=== PATIENT | male | born 1995 | race American Indian/Alaskan Native ===

== ENCOUNTER 2020-07-14 19:49 | Emergency (ER) | payer SELFPAY ==
[2020-07-14 20:35] VITALS: BP 118/69
[2020-07-14 21:06] LABS: Basophils # (Auto) 0.1 K/mm3 (0.0-0.1); Basophils % (Auto) 0.6 % (0.0-1.8); Eosinophils # (Auto) 0.1 K/mm3 (0.0-0.4); Eosinophils % (Auto) 1.3 % (0.0-4.3); Hematocrit 46.3 % (35.5-45.6); Hemoglobin 16.2 gm/dl (11.8-15.2); Lymphocytes # (Auto) 2.4 K/mm3 (1.2-5.4); Lymphocytes % (Auto) 27.2 % (13.4-35.0); Mean Corpuscular HGB Conc 35 % (32-34); Mean Corpuscular Volume 98 fl (84-94); Monocytes # (Auto) 0.5 K/mm3 (0.0-0.8); Monocytes % (Auto) 5.8 % (0.0-7.3); Platelet Count 205 K/mm3 (140-440); Red Blood Count 4.72 M/mm3 (3.65-5.03); Red Cell Distribution Width 13.7 % (13.2-15.2)
[2020-07-14 21:21] LABS: BUN/Creatinine Ratio 15; Blood Urea Nitrogen 12 mg/dL (9-20); Calcium 10.7 mg/dL (8.4-10.2); Hemolysis Index 27
--- NOTE | 2020-07-14 22:21 | Emergency Department Report ---
ED GI Bleed HPI - General Chief complaint: GI Bleed Stated complaint: BLOOD IN STOOL, HEMPRRHOIDS Source: patient Mode of arrival: Ambulatory Limitations: No Limitations - History of Present Illness Initial comments: Patient is a 24-year-old -[place] male with a history of chronic constipation and external hemorrhoids who presents to the ED with acute onset rectal pain with bright red blood per rectum for the last 2 days. Patient states that the pain is worse with any movement or bowel movement. Patient states that the bright red blood per rectum has been intermittent with each bowel movement leading to worsening pain. Patient states that he noticed that his external hemorrhoids have increased in size and now more prominent with severe pain. Patient admits to having frequent constipation. Patient denies abdominal pain, nausea, vomiting, traumatic injury, dizziness, fever, chills, syncope, chest pain or shortness of breath, dysuria, urinary frequency and urgency or testicular pain, urinary or bowel incontinence. MD complaint: blood on toilet paper, other (external hemorrhoid pain; Constipation) -: Sudden, days(s) (2) Radiation: none Severity scale (0 -10): 4 Quality: burning, sharp Consistency: constant Improves with: none Worsens with: bowel movement Context: hemorrhoids, other (chronic constipation) Associated Symptoms: denies other symptoms. denies: abdominal pain, nausea, vomiting, epistaxis, fever/chills, headaches, loss of appetite, malaise, easy bruising, rash, other bleeding, shortness of breath, syncope, weakness, other - Related Data Previous Rx's Medication Instructions Recorded Last Taken Type Dibucaine 1% [Nupercainal] 1 applicatio VA TID #1 tube 07/14/20 Unknown Rx Docusate Sodium [Colace CAP] 100 mg PO BID PRN #60 capsule 07/14/20 Unknown Rx Hydrocortisone [Anusol-Hc 2.5% TOP 1 applic RC Q8H #1 tube 07/14/20 Unknown Rx CREAM] Naproxen 500 mg PO Q12H PRN #24 tablet 07/14/20 Unknown Rx Allergies Allergy/AdvReac Type Severity Reaction Status Date / Time No Known Allergies Allergy Unverified 07/14/20 20:32 ED Review of Systems ROS: Stated complaint: BLOOD IN STOOL, HEMPRRHOIDS Other details as noted in HPI Constitutional: denies: chills, fever Eyes: denies: eye pain, eye discharge, vision change ENT: denies: ear pain, throat pain Respiratory: denies: cough, shortness of breath, wheezing Cardiovascular: denies: chest pain, palpitations Endocrine: no symptoms reported Gastrointestinal: constipation, other (Rectal bleeding; hemorrhoids). denies: abdominal pain, nausea, diarrhea Genitourinary: denies: urgency, dysuria Musculoskeletal: denies: back pain, joint swelling, arthralgia Skin: denies: rash, lesions Neurological: denies: headache, weakness, paresthesias Psychiatric: denies: anxiety, depression Hematological/Lymphatic: denies: easy bleeding, easy bruising ED Past Medical Hx - Past Medical History Previous Medical History?: No - Surgical History Past Surgical History?: No - Social History Smoking Status: Current Every Day Smoker Substance Use Type: Alcohol, Marijuana - Medications Home Medications: Home Medications Medication Instructions Recorded Confirmed Last Taken Type Dibucaine 1% [Nupercainal] 1 applicatio VA TID #1 tube 07/14/20 Unknown Rx Docusate Sodium [Colace CAP] 100 mg PO BID PRN #60 capsule 07/14/20 Unknown Rx Hydrocortisone [Anusol-Hc 2.5% TOP 1 applic RC Q8H #1 tube 07/14/20 Unknown Rx CREAM] Naproxen 500 mg PO Q12H PRN #24 tablet 07/14/20 Unknown Rx ED Physical Exam - General Limitations: No Limitations General appearance: alert, in no apparent distress - Head Head exam: Present: atraumatic, normocephalic, normal inspection - Eye Eye exam: Present: normal appearance, PERRL, EOMI Pupils: Present: normal accommodation - ENT ENT exam: Present: normal exam, normal orophraynx, mucous membranes moist, TM's normal bilaterally, normal external ear exam - Neck Neck exam: Present: normal inspection, full ROM - Respiratory Respiratory exam: Present: normal lung sounds bilaterally. Absent: respiratory distress, wheezes, rales, rhonchi, chest wall tenderness, accessory muscle use, decreased breath sounds - Cardiovascular Cardiovascular Exam: Present: regular rate, normal rhythm, normal heart sounds. Absent: systolic murmur, diastolic murmur, rubs, gallop - GI/Abdominal GI/Abdominal exam: Present: soft, normal bowel sounds. Absent: tenderness, hyperactive bowel sounds, organomegaly, mass, bruit - Rectal Rectal exam: Present: hemorrhoids (external mildly tender) - Extremities Exam Extremities exam: Present: normal inspection, full ROM, normal capillary refill - Back Exam Back exam: Present: normal inspection, full ROM. Absent: tenderness, CVA tenderness (R), CVA tenderness (L), muscle spasm, paraspinal tenderness, vertebral tenderness, rash noted - Neurological Exam Neurological exam: Present: alert, oriented X3, CN II-XII intact, normal gait, reflexes normal - Psychiatric Psychiatric exam: Present: normal affect, normal mood - Skin Skin exam: Present: warm, dry, intact, normal color. Absent: rash ED Course Vital Signs 07/14/20 20:32 Temperature 99.2 F Pulse Rate 70 Respiratory 18 Rate Blood Pressure 118/69 O2 Sat by Pulse 98 Oximetry ED Medical Decision Making - Lab Data Result diagrams: 07/14/20 20:53 07/14/20 20:53 - Medical Decision Making This is a 24-year-old -[place] male with a history of chronic constipation and external hemorrhoids who presents to the ED with acute onset re ctal pain with bright red blood per rectum for the last 2 days. Patient states that the pain is worse with any movement or bowel movement. Patient states that the bright red blood per rectum has been intermittent with each bowel movement leading to worsening pain. Patient states that he noticed that his external hemorrhoids have increased in size and now more prominent with severe pain. Patient admits to having frequent constipation. In the ED, patient is alert and oriented x3 and is not in distress. Patient was discharged home on medications and advised follow-up with his primary care physician in 5 to 7 days for reevaluation or return to the ED immediately if symptoms get worse. Patient was advised to use sitz bath's, drink plenty of water and increase high-fiber intake to controlled constipation. - Differential Diagnosis Hemorrhoids; Constipation; Anal fissures; Anal tears; GI Bleed Critical care attestation.: If time is entered above; I have spent that time in minutes in the direct care of this critically ill patient, excluding procedure time. ED Disposition Clinical Impression: External hemorrhoids, Rectal hemorrhage Constipation Qualifiers: Constipation type: other constipation type Qualified Code(s): K59.09 - Other constipation Disposition: - TO HOME OR SELFCARE Is pt being admited?: No Does the pt Need Aspirin: No Condition: Stable Instructions: Constipation, Adult, [id number], Hemorrhoids, [id number], Rectal Bleeding, [id number] Additional Instructions: The symptoms are likely due to external hemorrhoids that get bruised with each bowel movement causing the rectal bleeding. This are all caused by chronic constipation. Therefore take medication as advised, increase high-fiber content in your meals, drink plenty of fluids and follow-up with your primary care physician in 7 to 10 days for reevaluation. Return to the ED immediately if symptoms get worse. Prescriptions: Hydrocortisone [Anusol-Hc 2.5% TOP CREAM] 1 applic RC Q8H #1 tube Docusate Sodium [Colace CAP] 100 mg PO BID PRN #60 capsule PRN Reason: Constipation Naproxen 500 mg PO Q12H PRN #24 tablet PRN Reason: Pain , Severe (7-10) Dibucaine 1% [Nupercainal] 1 applicatio VA TID #1 tube Referrals: [facility] [Provider Group] - 7-10 days Time of Disposition: 22:19 Print Language: [id number]
== END 2020-07-14 22:30 | disposition home or self-care (01) ==
LOC: ED 19:49
DX: K59.00 Constipation, unspecified (principal); K64.4 Residual hemorrhoidal skin tags; K62.5 Hemorrhage of anus and rectum; F17.200 Nicotine dependence, unspecified, uncomplicated; F12.90 Cannabis use, unspecified, uncomplicated; Z79.899 Other long term (current) drug therapy
CPT/HCPCS: 36415; 80048; 85025; 99283